=== PATIENT | male | born 1980 | race Caucasian/White ===

== ENCOUNTER 2017-01-04 09:03 | Emergency (ER) | payer SELFPAY ==
[2017-01-04] MEDS ORDERED: Sodium Chloride 0.9% 1,000 ML IV ONE (09:31)
[2017-01-04] MEDS ORDERED: Ondansetron 4 MG/2 ML SDV IVPUSH ONE (09:31)
[2017-01-04] MEDS ORDERED: HYDROmorphone 1 MG/ML Syringe IVPUSH ONE ×2 (09:31→10:38)
[2017-01-04] MEDS ORDERED: Sodium Chloride 0.9% 10 ML Syringe FLUSH PRN (09:31)
[2017-01-04] MEDS ORDERED: Iopamidol 612 MG/ML 100 ML Bottle IVPUSH ONE (09:38)
[2017-01-04] MEDS ORDERED: Sodium Chloride 0.9% 100 ML IV ONE (09:38)
[2017-01-04 10:10] LABS: CHLORIDE,CL 104 mmol/L (98-107); SODIUM,NA 139 mmol/L (136-145)
[2017-01-04] MEDS ORDERED: Ketorolac 30 MG/ML SDV IVPUSH ONE (10:38)
[2017-01-04] MEDS ORDERED: Piperacillin/Tazobactam 4.5 GM in Sodium Chloride 0.9% 100 ML IV ONE (11:13)
[2017-01-04 11:44] VITALS: BP 110/72
--- NOTE | 2017-01-07 08:06 | ER ---
Date of Service: 01/04/2017 SUBJECTIVE: Cyrus presents to the emergency room with complaints of right lower quadrant pain that he has been experiencing since last evening. He states that he also was experiencing some nausea yesterday and states that it has gotten worse throughout the evening and into the night and now into the morning. He states that he has difficulty with standing up straight and walking due to this severe right lower quadrant pain. He states that he has also been experiencing some chills today as well. The maximum level or pain severity has had in the past 24 hours is a 10/10 pain. He states that he has not been experiencing any vomiting or diarrhea or blood in his stools. PAST MEDICAL HISTORY: None. PAST SURGICAL HISTORY: The patient states that he has never had any surgeries, abdominal or otherwise and states that he has never been exposed to any anesthetic agents. MEDICATIONS: None. ALLERGIES: To Valium. SOCIAL HISTORY: The patient lives in [facility]. 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 He is a nondrinker and states he quit smoking approximately 2 weeks ago. He is a nonsmoker and nondrinker. He quit smoking approximately 2 weeks ago. He denies any street drug use. He is . REVIEW OF SYSTEMS: General: Positive for fever and chills. HEENT: Denies any sore throat, rhinorrhea, or congestion. Respiratory: No shortness of breath. Denies any cough. Cardiac: Denies any substernal chest pain. No jaw, arm, neck, or back pain. Gastrointestinal: Positive for right lower quadrant, abdominal pain worse with movement and walking. He also has associated nausea, but no vomiting. No diarrhea. No melena, hematochezia, or hematemesis. Genitourinary: Denies any dysuria. Musculoskeletal: No myalgias or arthralgias. Neurologic: No fainting, blackouts, or lightheadedness. PHYSICAL EXAMINATION: General: This is a 36-year-old male patient, who is in a moderate amount of distress. Vital Signs: Blood pressure is 114/72, heart rate is 97, temp is 38.1, respiratory rate 16, and O2 saturations 98% on room air. Skin: Warm, pale, and mildly diaphoretic. HEENT: Head is normocephalic and atraumatic. Eyes, PERRLA. Extraocular movements are intact. Mouth, oral mucosa is moist, no erythema or exudate noted in hypopharynx. Neck: Supple without masses. There is no lymphadenopathy. Lungs: Clear to auscultation. Heart: Regular rate and rhythm. Abdomen: Soft, tender in the right lower quadrant. His obturator sign is positive. He does have rebound tenderness and guarding. Extremities: Without edema. Neurologic: He is alert and oriented answers all questions appropriately. His speech is fluent. His gait is within normal limits. LABORATORY DATA: CBC was obtained. He did have 15,100 white count, with 93.4% neutrophils, 5.6% lymphocytes, 0.5% monos, 0.3% eosinophils, and 0.2% basophils. Hemoglobin stable at 14.5, and platelets are 186. Coags; PT is 11.8, and INR is 1.0. Chemistry sodium is 139, potassium is 3.7, chloride is 104, bicarb is 24, BUN is 10, creatinine is 1.0, creatinine clearance is 109.8. GFR is greater than 60. Glucose is 111. Lactic acid is 2.2, calcium is 8.5, corrected calcium is 8.66. Total bilirubin is 1.3. AST is 13, ALT is 29, alkaline phosphatase is 79, C- reactive protein is 1.4, total protein is 6.5, albumin is 3.8, and globulin is 2.7. Urinalysis was obtained. Specific gravity was 1.010. This is after a liter of normal saline. Negative for protein, glucose, ketones, occult blood, nitrates, bilirubin, and leukocyte esterase. CT scan of the patient's abdomen and pelvis with IV contrast was obtained. He did have evidence of enlargement of the appendix with associated inflammatory change without evidence of free air or free fluid or other evidence of perforation. EMERGENCY ROOM COURSE: IV access was established. The patient initially was given Dilaudid 1 mg IV and Zofran 4 mg IV for his nausea. He did report that his pain has decreased down to approximately 2 on 1 to 10 scale and slowly crept up in severity. The patient was subsequently given another 1 mg of Dilaudid and 30 mg of Toradol IV. At this time, the patient states that his discomfort is near 0. The patient was subsequently started on Zosyn 4.5, and was given 4.5 g IV. He remained stable in my care in the emergency room. ASSESSMENT: Acute appendicitis. PLAN: The patient will be transferred. He will be transported by [facility] ground ambulance to [facility] in [place]. I spoke with Dr. Flores, the surgeon on- call who graciously accepts the patient in transfer. Again, the patient will be transported by ALS ground ambulance. He is a code level 1. MWK: 01/04/2017 11:37:30 MODL: 01/04/2017 12:19:28 /[id number]
== END 2017-01-04 11:55 | disposition short-term general hospital (02) ==
LOC: VM.ED 09:03
DX: K35.80 Unspecified acute appendicitis (principal); K80.20 Calculus of gallbladder without cholecystitis without obstruction; Z88.8 Allergy status to other drugs, medicaments and biological substances; Z87.891 Personal history of nicotine dependence
CPT/HCPCS: 36415; 74177; 80053; 81001; 83605; 85025; 85610; 86140; 96361; 96365; 96375; 96376; 99285; J1170; J1885; J2405; J2543; J7030; J7050; Q9967